=== PATIENT | male | born 1935 | race Caucasian/White ===

== ENCOUNTER 2018-11-02 10:27 | Day surgery (SDC) | payer OTHER ==
[~2018-11-02] VITALS: Ht 175.3 cm; Wt 90.9 kg
[~2018-11-02 10:27] MED LIST: ASPI81CH PO; Allopurinol100 MG PO; Aspirin EC81 MG PO; CALCIT950 PO; CITRACAL + BON1 EACH PO; GENPREOPSU; LIVALO4 MG PO; METO25 PO; Micro-K10 MEQ PO; NITR.4SL SL; OMEG1CAP30 PO; SILDENAFIL CIT100 MG PO; TAMS.4ER PO; Vitamin B-12100 MCG PO
== END 2018-11-02 12:10 | disposition home or self-care (01) ==
LOC: ORSCSDS 10:27
PROVIDERS: Student in an Organized Health Care Education/Training Program
PROC: 0D758ZZ Dilation of Esophagus, Via Natural or Artificial Opening Endoscopic (ICD-10-PCS; principal; 2018-11-02 11:45)
PROC: 0DB58ZX Excision of Esophagus, Via Natural or Artificial Opening Endoscopic, Diagnostic (ICD-10-PCS; principal; 2018-11-02 11:45)
DX: R13.10 Dysphagia, unspecified (principal); K22.2 Esophageal obstruction; K21.0 Gastro-esophageal reflux disease with esophagitis; K44.9 Diaphragmatic hernia without obstruction or gangrene; I48.91 Unspecified atrial fibrillation; G47.33 Obstructive sleep apnea (adult) (pediatric); Z95.1 Presence of aortocoronary bypass graft; Z79.82 Long term (current) use of aspirin; Z79.899 Other long term (current) drug therapy
CPT/HCPCS: 88305; 88312; C1726; J2704; J7120

== ENCOUNTER 2022-11-30 11:19 | Emergency (ER) | payer OTHER ==
[~2022-11-30] VITALS: Ht 177.8 cm; Wt 83.9 kg
[2022-11-30 11:46] VITALS: BP 131/112
[2022-11-30 12:26] LABS: Source, Urine Clean Catch
[2022-11-30 12:45] LABS: Bilirubin, Urine Neg (Neg); Blood, Urine 4+ (Neg); Glucose Qualitative, Urine Neg (Neg); Ketones, Urine Neg (Neg); Leukocyte Esterase, Urine Neg (Neg); Nitrite, Urine Neg (Neg); Protein, Urine 2+ (Neg); Urobilinogen, Urine NORM (Normal)
[2022-11-30 12:53] LABS: Appearance, Urine Hazy (Clear); Bacteria Rare /hpf; Color, Urine Yellow (P-Yellow); Squamous Epithelial Cells Few /hpf (Few); White Blood Cells, Urine Not Seen /hpf (0-5)
== END 2022-11-30 13:31 | disposition home or self-care (01) ==
LOC: ER 11:19
PROVIDERS: Physician Assistant
DX: R33.9 Retention of urine, unspecified (principal); R39.198 Other difficulties with micturition; F17.220 Nicotine dependence, chewing tobacco, uncomplicated; Z88.5 Allergy status to narcotic agent; Z79.82 Long term (current) use of aspirin
CPT/HCPCS: 51702; 51798; 81001; 87086; 99283

== ENCOUNTER 2022-12-14 12:35 | Emergency (ER) | payer OTHER ==
[~2022-12-14] VITALS: Ht 172.7 cm; Wt 88.0 kg
[2022-12-14 12:48] VITALS: BP 144/88
[2022-12-14 13:47] LABS: Source, Urine Straight Cath
[2022-12-14 13:52] LABS: Appearance, Urine Clear (Clear); Bilirubin, Urine Neg (Neg); Blood, Urine 3+ (Neg); Color, Urine Yellow (P-Yellow); Glucose Qualitative, Urine Neg (Neg); Ketones, Urine Neg (Neg); Leukocyte Esterase, Urine Neg (Neg); Nitrite, Urine Neg (Neg); Protein, Urine Neg (Neg); Specific Gravity, Urine 1.025 (1.003-1.022); Urobilinogen, Urine NORM (Normal)
[2022-12-14 14:08] LABS: Bacteria Few /hpf; Red Blood Cells, Urine 25-50 /hpf (0-2); Squamous Epithelial Cells Rare /hpf (Few); White Blood Cells, Urine 0-2 /hpf (0-5)
== END 2022-12-14 14:30 | disposition home or self-care (01) ==
LOC: ER 12:35
PROVIDERS: Physician Assistant
DX: N40.1 Benign prostatic hyperplasia with lower urinary tract symptoms (principal); R33.8 Other retention of urine; Z88.5 Allergy status to narcotic agent; Z79.899 Other long term (current) drug therapy; Z79.82 Long term (current) use of aspirin; F17.220 Nicotine dependence, chewing tobacco, uncomplicated
CPT/HCPCS: 51702; 51798; 81001; 99283

== ENCOUNTER → 2023-04-23 | Outpatient (CLI) | payer OTHER ==
[2023-04-23 13:21] LABS: Source, Urine Foley catheter
[2023-04-23 13:34] LABS: Bacteria Many /hpf; Red Blood Cells, Urine 25-50 /hpf (0-2); Squamous Epithelial Cells Not Seen /hpf (Few)
== END | disposition home or self-care (01) ==
LOC: LAB 13:19 → LAB SHORT 13:19
PROVIDERS: Chiropractor
DX: N39.0 Urinary tract infection, site not specified (principal); R30.0 Dysuria
CPT/HCPCS: 81015; 87077; 87086; 87186

== ENCOUNTER 2024-05-25 17:59 | Emergency (ER) | payer OTHER ==
[~2024-05-25] VITALS: Ht 172.7 cm; Wt 88.0 kg
[~2024-05-25 17:59] MED LIST changes: +CEFD300 PO; +DONE5 PO; +OMEP20ER PO; +POTCIT10 PO; +ROSU5 PO; +SERT50 PO; +XARELTO20 MG PO
[2024-05-25 19:26] LABS: BASOPHILS ABSOLUTE AUTO 0.06 K/mm3 (0.00-0.23); BASOPHILS PERCENT AUTO 1 % (0-2); EOSINOPHILS ABSOLUTE AUTO 0.14 K/mm3 (0.00-0.68); EOSINOPHILS PERCENT AUTO 2 % (0-6); Hemoglobin 12.3 g/dL (13.5-17.5); IMMATURE GRAN ABSOLUTE AUTO 0.04 K/mm3 (0.00-0.10); IMMATURE GRAN PERCENT AUTO 0 % (0-1); LYMPHOCYTES ABSOLUTE AUTO 0.92 K/mm3 (0.84-5.20); LYMPHOCYTES PERCENT AUTO 10 % (21-46); MONOCYTES ABSOLUTE AUTO 0.62 K/mm3 (0.16-1.47); MONOCYTES PERCENT AUTO 6 % (4-13); Mean Corpuscular HGB 31.1 pg (26.0-34.0); Mean Corpuscular HGB Conc 33.2 g/dL (31.5-36.5); Mean Corpuscular Volume 93 fL (80-100); Mean Platelet Volume 11.1 fL (9.1-12.4); NEUTROPHILS ABSOLUTE AUTO 7.84 K/mm3 (1.96-9.15); NEUTROPHILS PERCENT AUTO 82 % (41-73); Platelet Count 201 K/mm3 (150-400); RDW Coefficient Variation 14.4 % (11.7-14.2); Red Blood Cell Count 3.96 M/mm3 (4.30-5.90); White Blood Cell Count 9.62 K/mm3 (4.00-11.30)
[2024-05-25 20:39] LABS: Albumin, Blood 3.4 g/dL (3.4-5.0); Bilirubin, Total 0.4 mg/dL (0.1-1.0); Bun/Creatinine Ratio 29.8 (12.0-20.0); Calcium, Blood 9.3 mg/dL (8.5-10.1); Creatinine, Blood 1.41 mg/dL (0.60-1.20); Globulin, Blood 3.5 g/dL (2.2-4.0); Potassium, Blood 4.7 mmol/L (3.5-5.5); Total Protein, Blood 6.9 g/dL (6.4-8.2)
[2024-05-25 23:26] LABS: Source, Urine Clean Catch
[2024-05-25 23:34] LABS: Bilirubin, Urine Neg (Neg); Blood, Urine 5+ (Neg); Glucose Qualitative, Urine Neg (Neg); Ketones, Urine Neg (Neg); Leukocyte Esterase, Urine 1+ (Neg); Nitrite, Urine Neg (Neg); Protein, Urine 4+ (Neg); Urobilinogen, Urine NORM (Normal); pH, Urine 6.5 (5.0-8.0)
[2024-05-25 23:44] LABS: Appearance, Urine Bloody (Clear); Color, Urine Red (P-Yellow)
[2024-05-25 23:45] LABS: Bacteria Mod /hpf; Red Blood Cells, Urine TNTC /hpf (0-2); Squamous Epithelial Cells Not Seen /hpf (Few); White Blood Cells, Urine TNTC /hpf (0-5)
[2024-05-26 02:15] VITALS: BP 125/73
[2024-05-27] MEDS ORDERED: METO25ER PO (15:09)
[2024-05-27] MEDS ORDERED: DIVA250ER PO (15:11)
[2024-05-27] MEDS ORDERED: QUET25 PO (15:12)
[2024-05-27] MEDS ORDERED: Crestor40 MG PO (15:12)
[2024-05-27] MEDS ORDERED: ALLO100 PO (15:13)
== END 2024-05-26 02:28 | disposition home or self-care (01) ==
LOC: ER 17:59
PROVIDERS: Physician Assistant
DX: R31.9 Hematuria, unspecified (principal); I25.10 Atherosclerotic heart disease of native coronary artery without angina pectoris; F01.50 Vascular dementia, unspecified severity, without behavioral disturbance, psychotic disturbance, mood disturbance, and anxiety; F17.220 Nicotine dependence, chewing tobacco, uncomplicated; Z88.5 Allergy status to narcotic agent; Z79.01 Long term (current) use of anticoagulants; Z79.899 Other long term (current) drug therapy
CPT/HCPCS: 74176; 80053; 81001; 85025; 87077; 87086; 87186; 99284-25

== ENCOUNTER 2024-05-27 12:20 | Inpatient (IN) | payer OTHER ==
[~2024-05-27] VITALS: Ht 177.8 cm; Wt 81.4 kg
[2024-05-27] MEDS ORDERED: Piperacillin/Tazobactam Sod 3.375 GM in NS 100 ML IV ONE (13:00)
[2024-05-27] MEDS ORDERED: NS 500 ML IV SCH (13:00)
[2024-05-27 13:30] LABS: Albumin, Blood 2.8 g/dL (3.4-5.0); Albumin/Globulin Ratio 0.9 (0.8-1.8); Bilirubin, Total 0.3 mg/dL (0.1-1.0); Bun/Creatinine Ratio 22.2 (12.0-20.0); Calcium, Blood 8.8 mg/dL (8.5-10.1); Creatinine, Blood 1.85 mg/dL (0.60-1.20); Potassium, Blood 4.2 mmol/L (3.5-5.5); Thyroid Stimulating Hormone 0.933 uIU/mL (0.360-4.800); Total Protein, Blood 5.8 g/dL (6.4-8.2)
[2024-05-27 13:45] LABS: BASOPHILS ABSOLUTE AUTO 0.02 K/mm3 (0.00-0.23); BASOPHILS PERCENT AUTO 0 % (0-2); EOSINOPHILS ABSOLUTE AUTO 0.01 K/mm3 (0.00-0.68); EOSINOPHILS PERCENT AUTO 0 % (0-6); Hematocrit 31.5 % (37.0-53.0); Hemoglobin 10.6 g/dL (13.5-17.5); IMMATURE GRAN ABSOLUTE AUTO 0.03 K/mm3 (0.00-0.10); IMMATURE GRAN PERCENT AUTO 1 % (0-1); LYMPHOCYTES ABSOLUTE AUTO 0.45 K/mm3 (0.84-5.20); LYMPHOCYTES PERCENT AUTO 8 % (21-46); MONOCYTES ABSOLUTE AUTO 0.77 K/mm3 (0.16-1.47); MONOCYTES PERCENT AUTO 13 % (4-13); Mean Corpuscular HGB 31.8 pg (26.0-34.0); Mean Corpuscular HGB Conc 33.7 g/dL (31.5-36.5); Mean Corpuscular Volume 95 fL (80-100); Mean Platelet Volume 11.5 fL (9.1-12.4); NEUTROPHILS ABSOLUTE AUTO 4.49 K/mm3 (1.96-9.15); NEUTROPHILS PERCENT AUTO 78 % (41-73); Platelet Count 142 K/mm3 (150-400); RDW Coefficient Variation 14.6 % (11.7-14.2); RDW Standard Deviation 50.4 fL (35.1-46.3); Red Blood Cell Count 3.33 M/mm3 (4.30-5.90); White Blood Cell Count 5.77 K/mm3 (4.00-11.30)
[2024-05-27 14:10] LABS: Influenza A, PCR NEGATIVE (NEGATIVE); Influenza B, PCR NEGATIVE (NEGATIVE); Resp Syncytial Virus, PCR NEGATIVE (NEGATIVE); SARS-Cov-2 (COVID-19) PCR, MMC NEGATIVE (NEGATIVE)
[2024-05-27] MEDS ORDERED: Lactated Ringer's 1,000 ML IV SCH (14:25)
[2024-05-27] MEDS ORDERED: FLU VACC TS2024-25(6MOS UP)/PF 45 MCG/0.5 ML SYRINGE IM PRN (14:25)
[2024-05-27] MEDS ORDERED: METO25ER PO (15:09)
[2024-05-27] MEDS ORDERED: POTCIT10 PO (15:10)
[2024-05-27] MEDS ORDERED: DIVA250ER PO (15:11)
[2024-05-27] MEDS ORDERED: OMEP20ER PO (15:11)
[2024-05-27] MEDS ORDERED: Crestor40 MG PO (15:12)
[2024-05-27] MEDS ORDERED: DONE5 PO (15:12)
[2024-05-27] MEDS ORDERED: QUET25 PO (15:12)
[2024-05-27] MEDS ORDERED: TAMS.4ER PO (15:13)
[2024-05-27] MEDS ORDERED: ALLO100 PO (15:13)
[2024-05-27] MEDS ORDERED: SERT50 PO (15:13)
[2024-05-27] MEDS ORDERED: Allopurinol 100 MG Tab PO SCH (17:00)
[2024-05-27] MEDS ORDERED: Sertraline HCl 50 MG Tab PO SCH (17:00)
[2024-05-27] MEDS ORDERED: Tamsulosin HCl 0.4 MG Cap PO SCH (17:00)
[2024-05-27] MEDS ORDERED: Piperacillin/Tazobactam Sod 2.25 GM in NS 50 ML IV SCH (18:00)
[2024-05-27 19:36] VITALS: BP 112/100
[2024-05-27] MEDS ORDERED: Lactobacil 2-S.Thermo-Bifido 1 1 Cap PO SCH (21:00)
[2024-05-27] MEDS ORDERED: Divalproex Sodium 250 MG TABCR PO SCH (21:00)
[2024-05-27] MEDS ORDERED: QUEtiapine Fumarate 25 MG Tab PO SCH (21:00)
[2024-05-27] MEDS ORDERED: Atorvastatin 10 MG Tab PO SCH (21:00)
[2024-05-27] MEDS ORDERED: Donepezil HCl 5 MG Tab PO SCH (21:00)
[2024-05-27 23:22] VITALS: BP 103/57
[2024-05-27] MEDS ORDERED: Acetaminophen 325 MG TABLET PO PRN (23:45)
[2024-05-28] VITALS (7 sets, daily range): BP systolic 83–107; BP diastolic 56–80
[2024-05-28 05:57] LABS: Campylobacter Sp Not Detected (NOT DETECT); Plesiomonas Shigelloides Not Detected (NOT DETECT); Salmonella Sp Not Detected (NOT DETECT); Vibrio Sp Not Detected (NOT DETECT); Yersinia Enterocolitica Not Detected (NOT DETECT)
[2024-05-28 05:58] LABS: Adenovirus F 40/41 Not Detected (NOT DETECT); Astrovirus Not Detected (NOT DETECT); Cryptosporidium Not Detected (NOT DETECT); Cyclospora Cayetanensis Not Detected (NOT DETECT); E. Coli O157 Not Detected (NOT DETECT); Entamoeba Histolytica Not Detected (NOT DETECT); Enteroaggregative E. coli-EAEC Not Detected (NOT DETECT); Enteropathogenic E. coli-EPEC Not Detected (NOT DETECT); Enterotoxigenic E. coli-ETEC Not Detected (NOT DETECT); Giardia Lamblia Not Detected (NOT DETECT); Norovirus GI/GII Not Detected (NOT DETECT); Rotavirus A Not Detected (NOT DETECT); Sapovirus Not Detected (NOT DETECT); Shiga Toxin-prod E. coli-STEC Not Detected (NOT DETECT); Shigella/Enteroin E. coli-EIEC Not Detected (NOT DETECT); Vibrio Cholerae Not Detected (NOT DETECT)
[2024-05-28] MEDS ORDERED: Omeprazole 20 MG CapCR PO SCH (06:00)
--- NOTE | 2024-05-28 06:15 | NUR ---
SHIFT SUMMARY PATIENT ALERT, ORIENTED TO SELF AND DAUGHTER AT BEDSIDE. Hx DEMENTIA. PATIENT VERY [place]. BP STABLE. ON TELE, AFIB DURING THE NIGHT. AMIO GTT INFUSING PER EMAR. TEMP ETIENNE IN PLACE DRAINING DARK YELLOW URINE, TMAX 101.1, MEDICATED WITH TYLENOL. ETIENNE CHANGED ON ADMISSION D/T LEAKING. PATIENT WITH MULTIPLE BOWEL MOVEMENTS, STOOL SAMPLE SENT - CDIFF+, ISOLATION SET UP. ATTENDS IN PLACE. NO OTHER CHANGES SINCE ADMISSION. WILL REPORT TO DAY SHIFT RN.
[2024-05-28] MEDS ORDERED: Vancomycin HCl 125 MG Cap PO SCH (08:00)
[2024-05-28 08:56] LABS: Bun/Creatinine Ratio 20.1 (12.0-20.0); Calcium, Blood 8.6 mg/dL (8.5-10.1); Creatinine, Blood 1.54 mg/dL (0.60-1.20); Potassium, Blood 3.6 mmol/L (3.5-5.5)
[2024-05-28] MEDS ORDERED: Metoprolol Succinate 25 MG TABCR PO SCH (09:00)
--- NOTE | 2024-05-28 11:18 | NUR ---
AM NOTE this rn assumed care at 0700. vital signs stable. tele afib 90s-100s. patient is alert and oriented x3. patient can make needs known and uses call light appropriately. daughter is at bedside and helps with care. denies pain, chest pain/pressure or shortness of breath. see shift assessment for further detials. patient worked with physical and occupational therapy today.
--- NOTE | 2024-05-28 17:41 | NUR ---
shift summary patient neuro remains unchanged this shift. family in the room all day and family members trade shifts off. family members helpful in having patient participate in care and helping patient stay calm when stating wanting to go home. patient blood pressure soft but maps remain >60. bowen draining with gravity yellow coloration. plan remains up to date
[2024-05-29] VITALS (13 sets, daily range): BP systolic 79–108; BP diastolic 51–66
--- NOTE | 2024-05-29 01:08 | NUR ---
CHANGE IN CONDITION PT SBP SUSTAINING 80'S WITH MAP 60-70'S, PT ASYMPTOMATIC/ DENIES DISZZINESS, LIGHTHEADEDNESS AND STATES HE FEELS FINE. MD NOTIFED, NO NEW ORDERS AT THIS TIME.
[2024-05-29 05:29] LABS: Bun/Creatinine Ratio 17.3 (12.0-20.0); Calcium, Blood 8.6 mg/dL (8.5-10.1); Creatinine, Blood 1.39 mg/dL (0.60-1.20); Potassium, Blood 3.6 mmol/L (3.5-5.5)
--- NOTE | 2024-05-29 06:00 | NUR ---
SHIFT SUMMARY PT A&O TO SELF AND FAMILY, PT STATING HE WAS AT HOME IN [place]/PT REORIANTED TO HOSPITAL IN [place]/ A COUPLE MINUTES LATER PT ASKING WHERE HE IS-FAMILY REORIANTED PT AT NEEDED, OBEYS COMMANDS, MOVING ALL EXTREMITIES EQUALLY. CONTINUOUS SPO2, SPO2 GREATER THAN 90% ON RA. CONTINUOUS TELE MONITORING, AFIB RHYTHM 100 S, PT DENIES CHEST P/P AT THIS TIME, STRONG PULSES PRESENT T/O. BOWEL TONES PRESENT IN ALL 4Q, PT HAVING INCONINTENT EPISODE OF BM. TEMP ETIENNE SECURE/PATENT/DRAINING TO GRAVITY. FAMILLY AT BEDSIDE T/O THE NIGHT REDIRECTING PT NEEDED. BED LOWEST POSITION, CALL LIGHT IN REACH, AWAITING TO GIVE REPORT TO ONCOMING RN.
[2024-05-29] MEDS ORDERED: Metoprolol Succinate 25 MG TABCR PO SCH (09:00)
[2024-05-29] MEDS ORDERED: Piperacillin/Tazobactam Sod 3.375 GM in NS 100 ML IV SCH ×2 (16:00→18:00)
--- NOTE | 2024-05-29 18:33 | NUR ---
SHIFT SUMMARY: NO SIGNIFICANT EVENTS HAPPENED DURING THIS SHIFT. PT WAS ABLE TO GET UP WITH 2P ASSIST TO CHAIR AND COMMODE. ETIENNE REMAINS. PTS HR IS CONTROLLED AT THIS TIME ALTHOUGH HE GETS TACHYCARDIC WITH EXERTION. IV ABX CONTINUES. WILL CONTINUE TO CARE FOR PT TILL END OF SHIFT.
[2024-05-29] MEDS ORDERED: ZINC OXIDE/PETROLATUM, YELLOW 1 APPLIC/71 GM PASTE TOP PRN (22:10)
[2024-05-30 00:26] VITALS: BP 127/65
[2024-05-30 04:05] VITALS: BP 97/60
[2024-05-30 04:26] LABS: Bun/Creatinine Ratio 14.5 (12.0-20.0); Calcium, Blood 8.7 mg/dL (8.5-10.1); Creatinine, Blood 1.24 mg/dL (0.60-1.20); Potassium, Blood 3.4 mmol/L (3.5-5.5)
--- NOTE | 2024-05-30 05:23 | NUR ---
SHIFT SUMMARY PT A&O TO SELF AND FAMILY, PT STATING HE WAS AT HOME /FAMILY REORIANTED PT AT NEEDED, OBEYS COMMANDS, MOVING ALL EXTREMITIES EQUALLY. CONTINUOUS SPO2, SPO2 GREATER THAN 90% ON RA THE MAJORITY OF THE SHIFT/PT DROPPED TO LOW 80% WHILE SLEEPING-PT PLACED ON 2L O2 VIA NC AND SPO2 CAME TO GREATER THAN 90%. CONTINUOUS TELE MONITORING, AFIB RHYTHM 80-100 S WHILE AT REST/WITH ACTIVITY HR 130 S, PT DENIES CHEST P/P AT THIS TIME, BP STABLE WITH MAP GREATER THAN 65, STRONG PULSES PRESENT T/O. BOWEL TONES PRESENT IN ALL 4Q, PT HAVING INCONINTENT EPISODES OF BM. TEMP ETIENNE SECURE/PATENT/DRAINING TO GRAVITY. FAMILLY AT BEDSIDE T/O THE NIGHT REDIRECTING PT NEEDED. BED LOWEST POSITION, CALL LIGHT IN REACH, AWAITING TO GIVE REPORT TO ONCOMING RN.
[2024-05-30] MEDS ORDERED: Potassium Chloride 20 MEQ TabCR PO ONE (07:50)
[2024-05-30 08:25] VITALS: BP 101/72
[2024-05-30] MEDS ORDERED: VANCOCIN HCL125 MG PO (11:01)
[2024-05-30] MEDS ORDERED: PROBIOTIC1 EA13 PO (11:02)
[2024-05-30] MEDS ORDERED: Critic-Aid142 GM TOP (11:03)
[2024-05-30 12:23] VITALS: BP 100/75
--- NOTE | 2024-05-30 12:56 | NUR ---
pATIENT DISCHARGED HOME WITH DAUGHTER, D/C & MEDICATION TEACHING DONE AT BEDSIDE WITH PATIENT AND 2 DAUGHTERS VITALS STABLE, SEE CHARTING
== END 2024-05-30 12:57 | disposition home health service (06) | DRG 372 ==
LOC: ER 12:20 → ERHOLD 12:21 → PCU 19:16
PROVIDERS: Emergency Medicine; Internal Medicine; ADMIT Internal Medicine
DX: A04.72 Enterocolitis due to Clostridium difficile, not specified as recurrent (principal); I48.92 Unspecified atrial flutter; N17.9 Acute kidney failure, unspecified; N39.0 Urinary tract infection, site not specified; I48.91 Unspecified atrial fibrillation; N18.30 Chronic kidney disease, stage 3 unspecified; F17.220 Nicotine dependence, chewing tobacco, uncomplicated; B96.89 Other specified bacterial agents as the cause of diseases classified elsewhere; N21.0 Calculus in bladder; F01.50 Vascular dementia, unspecified severity, without behavioral disturbance, psychotic disturbance, mood disturbance, and anxiety; Z85.46 Personal history of malignant neoplasm of prostate; Z86.69 Personal history of other diseases of the nervous system and sense organs; I25.10 Atherosclerotic heart disease of native coronary artery without angina pectoris; E78.5 Hyperlipidemia, unspecified; K21.9 Gastro-esophageal reflux disease without esophagitis; Z95.1 Presence of aortocoronary bypass graft; Z88.5 Allergy status to narcotic agent; Z79.01 Long term (current) use of anticoagulants; Z79.899 Other long term (current) drug therapy
CPT/HCPCS: 0241U; 36415; 51702; 80048; 80053; 83605; 83735; 84145; 84443; 84484; 85025; 87086; 87324; 87507; 93005; 93010; 96361; 96365; 96366; 96367; 96376; 97162; 97166; 97530; 97535; 99285-25; A9270; G0378; J0282; J2543; J7030; J7060; J7120

== ENCOUNTER → 2024-06-10 | Outpatient (CLI) | payer OTHER ==
[~2024-06-10] MED LIST changes: +ALLO100 PO; +Crestor40 MG PO; +Critic-Aid142 GM TOP; +DIVA250ER PO; +METO25ER PO; +PROBIOTIC1 EA13 PO; +QUET25 PO; +VANCOCIN HCL125 MG PO
[2024-06-12 13:15] LABS: C DIFFICILE DNA NEGATIVE (Negative)
== END ==
LOC: LAB SHORT 15:02 → LAB 15:02
PROVIDERS: Legal Medicine
DX: A04.72 Enterocolitis due to Clostridium difficile, not specified as recurrent (principal)
CPT/HCPCS: 87493

== ENCOUNTER → 2024-07-14 | Outpatient (CLI) | payer OTHER ==
[2024-07-14 14:25] LABS: Source, Urine Clean Catch
[2024-07-14 19:14] LABS: Appearance, Urine Cloudy (Clear); Bilirubin, Urine Neg (Neg); Blood, Urine 3+ (Neg); Color, Urine Yellow (P-Yellow); Glucose Qualitative, Urine Neg (Neg); Ketones, Urine Neg (Neg); Leukocyte Esterase, Urine 3+ (Neg); Nitrite, Urine Pos (Neg); Protein, Urine 3+ (Neg); Specific Gravity, Urine 1.015 (1.003-1.022); Urobilinogen, Urine NORM (Normal)
[2024-07-14 19:23] LABS: White Blood Cells, Urine TNTC /hpf (0-5)
[2024-07-14 19:24] LABS: Bacteria Many /hpf; Squamous Epithelial Cells Few /hpf (Few)
== END | disposition home or self-care (01) ==
LOC: LAB 14:22 → LAB SHORT 14:22 → EDSTATUS 05-31 17:55 → LAB FUT 05-31 17:55
PROVIDERS: Legal Medicine
DX: A04.72 Enterocolitis due to Clostridium difficile, not specified as recurrent (principal); N39.0 Urinary tract infection, site not specified; N18.9 Chronic kidney disease, unspecified
CPT/HCPCS: 81001; 87077; 87086; 87186

== ENCOUNTER → 2024-08-12 | Outpatient (CLI) | payer OTHER ==
[2024-08-13 08:01] LABS: C DIFFICILE DNA POSITIVE (Negative)
== END ==
LOC: LAB 10:10 → LAB SHORT 10:10
PROVIDERS: Legal Medicine
DX: A04.71 Enterocolitis due to Clostridium difficile, recurrent (principal)
CPT/HCPCS: 87324; 87493